=== PATIENT | male | born 1975 | race Caucasian/White ===

== ENCOUNTER 2017-06-30 18:09 | Emergency (ER) | payer OTHER ==
[~2017-06-30] VITALS: Ht 175.3 cm; Wt 117.0 kg
[2017-06-30 23:36] VITALS: BP 135/71
== END 2017-06-30 23:36 | disposition home or self-care (01) ==
LOC: ED 18:09
DX: M54.40 Lumbago with sciatica, unspecified side (principal); R53.1 Weakness
CPT/HCPCS: J1100; J1170; J1885; J2405; J3010; J3360; J7030